=== PATIENT | female | born 1985 | race African-American/Black ===

== ENCOUNTER 2016-11-07 21:37 | Emergency (ER) | payer OTHER ==
[2016-11-07 21:50] VITALS: BP 106/60; PULSE 76; TEMP 98.3; BMI 28.3
[2016-11-07] MEDS ORDERED: DIPHTH,PERTUSS(ACELL),TET 0.5 ML DISP.SYRIN IM ONE (22:01)
--- NOTE | 2016-11-07 22:16 | PDOC ---
History of Present Illness - General Chief Complaint: Laceration Stated Complaint: LACERATION Time Seen by Provider: 11/07/16 21:55 History Source: Patient Exam Limitations: No Limitations - History of Present Illness Initial Comments: 11/07/16 22:15 30-year-old female status post laceration to right second digit. Patient states was cleaning a glass when it broke causing her to sustain an injury. Patient denies radiation of pain or difficulty moving her finger. Patient states unsure of her last tetanus. Timing/Duration: reports: just prior to arrival Severity: Yes: mild Location: reports: hands Respiratory Risk Factors: reports: other (glass) Associated Symptoms: reports: other Past History - Past Medical History Allergies/Adverse Reactions: Allergies Allergy/AdvReac Type Severity Reaction Status Date / Time ibuprofen Allergy Verified 11/07/16 21:49 Home Medications: Ambulatory Orders NK [No Known Home Medication] 11/07/16 - Reproductive History LMP Normal: Yes Is Patient Now?: No - Psycho/Social/Smoking Cessation Hx Suicidal Ideation: No Smoking History: Never smoked Patient Lives Alone: No Lives with/in: parents Review of Systems - Review of Systems Able to Perform ROS?: Yes Musculoskeletal: No: Symptoms Reported Integumentary: Yes: Other (laceration to right second finger) Neurological: No: Symptoms reported *Physical Exam - Vital Signs Last Vital Signs Temp Pulse Resp BP Pulse Ox 98.3 F 76 18 106/60 99 11/07/16 21:49 11/07/16 21:49 11/07/16 21:49 11/07/16 21:49 11/07/16 21:49 - Physical Exam General Appearance: Yes: Nourished, Appropriately Dressed. No: Apparent Distress Integumentary: positive: Normal Color, Warm, Other (patient with 2 cm half twenty-nine palms laceration tolateral aspect of right second digit at the PIP joint) Neurologic: positive: Motor Strength 5/5 (full mobility of right second digit) Procedures - Laceration/Wound Repair Right 2nd digit Wound Length: to 2.5 cm Wound Explored: clean Wound's Depth, Shape: superficial, linear Irrigated w/ Saline: Yes Betadine Prep: Yes Anesthesia: 1% Lidocaine Amount of Anesthetic (ccs): 1 Wound Repaired With: Sutures Suture Size/Type: 5:0 Number of Sutures: 6 Sterile Dressing Applied: Yes (with bacitracin) Medical Decision Making - Medical Decision Making 11/07/16 22:18 Patient status post laceration to right second digit. Laceration repair done without difficulty. Patient to return here in 10-14 days. *DC/Admit/Observation/Transfer Diagnosis at time of Disposition: Laceration of finger Qualifiers: Encounter type: initial encounter Qualified Code(s): S61.219A - Laceration without foreign body of unspecified finger without damage to nail, initial encounter - Discharge Dispostion Disposition: HOME Condition at time of disposition: Improved - Patient Instructions Printed Discharge Instructions: DI for Laceration Repair Additional Instructions: Return here in 10-14 days for suture removal. Please keep very clean and dry applying bacitracin daily to area. If area becomes red swollen or starts to drain please return to the ED sooner as this may be a sign of infection
== END 2016-11-07 22:23 | disposition home or self-care (01) ==
LOC: JERFT 21:37
PROC: 0HQFXZZ Repair Right Hand Skin, External Approach (ICD-10-PCS; principal; 2016-11-07)
DX: S61.210A Laceration without foreign body of right index finger without damage to nail, initial encounter (principal); W25.XXXA Contact with sharp glass, initial encounter; Y93.G1 Activity, food preparation and clean up; Y92.030 Kitchen in apartment as the place of occurrence of the external cause
CPT/HCPCS: 90715; 99281-25

== ENCOUNTER 2016-11-20 18:46 | Emergency (ER) | payer OTHER ==
[2016-11-20 18:52] VITALS: BP 148/79; PULSE 97; TEMP 98.5; BMI 28.3
--- NOTE | 2016-11-20 19:15 | PDOC ---
Suture Removal/Wound Check HPI - History of Present Illness Chief Complaint: Suture/Staple Removal(Here) Stated Complaint: REVISIT Time Seen by Provider: 11/20/16 18:55 History Source: Yes: Patient Exam Limitations: Yes: No Limitations Past History - Past Medical History Allergies/Adverse Reactions: Allergies ibuprofen Allergy (Verified 11/20/16 18:52) Home Medications: Ambulatory Orders NK [No Known Home Medication] 11/07/16 - Social History Smoking Status: Never smoked Medical Decision Making - Medical Decision Making A/P: 30 y/o afebrile female who had 6 sutures placed into her right index finger on 11/07/16 here for suture removal. The patient denies fever, pain, discharge from wound. Removed 6 sutures without difficulty from right index finger. Margins remained intact. Instructed her to keep the area clean and dry. The patient verbalizes understanding of all instructions, has no further questions and is awaiting discharge. *DC/Admit/Observation/Transfer Diagnosis at time of Disposition: Encounter for removal of sutures - Discharge Dispostion Disposition: HOME Condition at time of disposition: Good - Patient Instructions Printed Discharge Instructions: DI for Suture Removal
== END 2016-11-20 19:23 | disposition home or self-care (01) ==
LOC: JERFT 18:46
DX: Z48.02 Encounter for removal of sutures (principal)
CPT/HCPCS: 99281-25